=== PATIENT | male | born 1950 | race Caucasian/White ===

== ENCOUNTER 2017-01-13 18:47 | Inpatient (IN) | payer OTHER ==
[~2017-01-13] VITALS: Ht 170.2 cm; Wt 86.3 kg
[~2017-01-13 18:47] MED LIST: AMLO-512 PO; ASPI-449 PO; BENA40TA3 PO; GEMF600T3 PO; METF1000 PO; METO25XL PO; OMEP20CA10 PO; SERT50TA12 PO; TEMA30CA PO
[2017-01-13] MEDS ORDERED: LINA5TAB PO (18:56)
[2017-01-13] MEDS ORDERED: METO50 PO (18:56)
[2017-01-13] MEDS ORDERED: HYDR25TA PO (18:56)
[2017-01-13] MEDS ORDERED: LOSA50TA37 PO (18:56)
[2017-01-13 18:58] LABS: GLUCOSE,POINT OF CARE 222 MG/DL (70-110)
[2017-01-13 20:20] LABS: BASOPHILS % (AUTO) 0.7 % (0.0-2.0); EOSINOPHILS % (AUTO) 0.3 % (1.0-6.0); HEMATOCRIT 36.3 % (41-53); HEMOGLOBIN 12.4 g/dL (13.5-17.5); LYMPHOCYTES # (AUTO) 0.9 K/uL (1.0-4.8); LYMPHOCYTES % (AUTO) 13.4 % (22.0-44.0); MEAN CORPUSCULAR HEMOGLOBIN 29.1 pg (26.0-34.0); MEAN CORPUSCULAR HGB CONC 34.2 G/dL (31.0-37.0); MEAN CORPUSCULAR VOLUME 85 fL (80-100); MONOCYTES # (AUTO) 0.4 K/uL (0.1-1.0); MONOCYTES % (AUTO) 5.9 % (2.0-9.0); NEUTROPHILS # (AUTO) 5.2 K/uL (1.8-7.7); NEUTROPHILS % (AUTO) 79.7 % (40.0-70.0); PLATELET COUNT (AUTO) 201 K/uL (150-450); RED BLOOD CELL COUNT(AUTO) 4.27 MIL/uL (4.50-5.90); RED CELL DISTRIBUTION WIDTH 15.5 % (11.5-14.5)
[2017-01-13 20:28] LABS: CREATININE 1.28 mg/dL (0.60-1.30); POTASSIUM 3.6 mmol/L (3.5-5.1)
[2017-01-13 20:33] LABS: ALBUMIN 3.8 g/dL (3.4-5.0); BILIRUBIN,TOTAL 0.8 mg/dL (0.1-1.0); TOTAL PROTEIN, SERUM 7.3 g/dL (6.4-8.2)
[2017-01-13 20:36] LABS: APPEARANCE,URINE CLEAR (CLEAR); GLUCOSE, URINE (UA) NEGATIVE (NEGATIVE); KETONES,URINE NEGATIVE (NEGATIVE); LEUKOCYTE ESTERASE ,URINE NEGATIVE (NEGATIVE); NITRATE,URINE NEGATIVE (NEGATIVE); OCCULT BLOOD,URINE NEGATIVE (NEGATIVE); PROTEIN,URINE SEE CONFIRM (NEGATIVE)
[2017-01-13 20:38] LABS: BILIRUBIN,URINE PRELIM. POSITIVE (NEGATIVE)
[2017-01-13 20:52] LABS: SULFOSALICYLIC ACID,URINE 3+ (Negative)
[2017-01-13 20:53] LABS: BACTERIA,URINE Few /HPF (None Seen); RBC,URINE 0-2 /HPF (0-2); SQUAMOUS EPITHELIAL CELL,UR Few /LPF (None Seen)
[2017-01-13] MEDS ORDERED: FUROSEMIDE 40 MG/4 ML VIAL IVP ONE (21:15)
[2017-01-13] MEDS ORDERED: ACETAMINOPHEN 325 MG TABLET PO PRN (21:45)
[2017-01-13] MEDS ORDERED: 0.9% SODIUM CHLORIDE 10 ML SYRINGE IVP PRN (21:45)
[2017-01-13] MEDS ORDERED: ONDANSETRON HCL 4 MG/2 ML VIAL IVP PRN (21:45)
[2017-01-13 22:10] VITALS: BP 154/107
[2017-01-14] VITALS (7 sets, daily range): BP systolic 126–156; BP diastolic 78–106
[2017-01-14] MEDS ORDERED: PNEUMOCOCCAL VACCINE POLYVALENT 0.5 ML VIAL [PPSV23] IM ONE (00:30)
[2017-01-14] MEDS ORDERED: 0.9% SODIUM CHLORIDE 10 ML SYRINGE IVP PRN (04:00)
[2017-01-14] MEDS ORDERED: ONDANSETRON HCL 4 MG/2 ML VIAL IVP PRN (04:00)
[2017-01-14] MEDS ORDERED: DEXTROSE 50%-WATER 25 GM/50 ML SYRINGE IVP PRN (04:00)
[2017-01-14] MEDS: INSULIN ASPART 100 UNITS/ML SQ PRN ×4 (06:03→20:27)
[2017-01-14 07:50] LABS: GLUCOMETER DEV NAME(LOC) 5S 2N; GLUCOSE,POINT OF CARE 199 MG/DL (70-110)
[2017-01-14 07:56] LABS: BASOPHILS # (AUTO) 0.03 K/uL (0.00-0.20); BASOPHILS % (AUTO) 0.5 % (0.0-2.0); EOSINOPHILS # (AUTO) 0.02 K/uL (0.00-0.70); EOSINOPHILS % (AUTO) 0.38 % (1.0-6.0); HEMATOCRIT 36.5 % (41-53); HEMOGLOBIN 12.2 g/dL (13.5-17.5); LYMPHOCYTES # (AUTO) 1.6 K/uL (1.0-4.8); LYMPHOCYTES % (AUTO) 24.2 % (22.0-44.0); MEAN CORPUSCULAR HEMOGLOBIN 28.5 pg (26.0-34.0); MEAN CORPUSCULAR HGB CONC 33.5 G/dL (31.0-37.0); MEAN CORPUSCULAR VOLUME 85 fL (80-100); MONOCYTES # (AUTO) 0.4 K/uL (0.1-1.0); MONOCYTES % (AUTO) 6.3 % (2.0-9.0); NEUTROPHILS # (AUTO) 4.5 K/uL (1.8-7.7); NEUTROPHILS % (AUTO) 68.5 % (40.0-70.0); PLATELET COUNT (AUTO) 183 K/uL (150-450); RED BLOOD CELL COUNT(AUTO) 4.28 MIL/uL (4.50-5.90); RED CELL DISTRIBUTION WIDTH 15.3 % (11.5-14.5)
[2017-01-14 08:10] LABS: INR 1.1 (0.9-1.1)
[2017-01-14 08:20] LABS: ALANINE AMINOTRANSFERASE 155 U/L (12-78); ALBUMIN 3.8 g/dL (3.4-5.0); ALKALINE PHOSPHATASE 90 U/L (46-116); ANION GAP 11 mmol/L (8-16); ASPARTATE AMINOTRANSFERASE 108 U/L (15-37); BILIRUBIN,TOTAL 0.9 mg/dL (0.1-1.0); CALCIUM, TOTAL 8.9 mg/dL (8.8-10.5); CARBON DIOXIDE 27 mmol/L (22-29); CHLORIDE 99 mmol/L (98-107); CREATININE 1.16 mg/dL (0.60-1.30); GLOMERULAR FILTR. RATE CALC > 60 mL/min (>60); GLUCOSE,RANDOM 154 mg/dL (70-110); POTASSIUM 3.2 mmol/L (3.5-5.1); SODIUM SERUM 137 mmol/L (136-145); TOTAL PROTEIN, SERUM 6.9 g/dL (6.4-8.2); UREA NITROGEN, BLOOD 20 mg/dL (7-18)
[2017-01-14] MEDS: FUROSEMIDE 40 MG/4 ML VIAL IVP SCH (08:22)
[2017-01-14] MEDS: PANTOPRAZOLE SODIUM 40 MG/VIAL IVP SCH ×2 (08:23→19:50)
[2017-01-14] MEDS: AmLODIPine BESYLATE 10 MG TABLET PO SCH (08:23)
[2017-01-14] MEDS: LOSARTAN POTASSIUM 50 MG TABLET PO SCH (08:25)
[2017-01-14] MEDS: GEMFIBROZIL 600 MG TABLET PO SCH ×2 (08:25→19:49)
[2017-01-14] MEDS: SERTRALINE HCL 50 MG TABLET PO SCH (08:26)
[2017-01-14] MEDS ORDERED: POTASSIUM CHLORIDE 20 MEQ ER TABLET PO ONE (10:00)
[2017-01-14] MEDS ORDERED: MAGNESIUM SULFATE 2 GM in DEXTROSE 5%-WATER 50 ML IV ONE (10:00)
[2017-01-14 13:32] LABS: HEMATOCRIT 36.7 % (41-53); HEMOGLOBIN 12.5 g/dL (13.5-17.5)
[2017-01-14 20:02] LABS: HEMATOCRIT 37.6 % (41-53); HEMOGLOBIN 12.5 g/dL (13.5-17.5)
[2017-01-15 02:01] LABS: HEMATOCRIT 37.4 % (41-53); HEMOGLOBIN 12.4 g/dL (13.5-17.5)
[2017-01-15 04:55] VITALS: BP 145/91
[2017-01-15] MEDS: INSULIN ASPART 100 UNITS/ML SQ PRN ×3 (05:48→17:50)
[2017-01-15 06:39] LABS: HEMOGLOBIN 12.6 g/dL (13.5-17.5)
[2017-01-15 07:18] VITALS: BP 139/97
[2017-01-15 07:57] LABS: GLUCOMETER DEV NAME(LOC) 5S 2N; GLUCOSE,POINT OF CARE 173 MG/DL (70-110)
[2017-01-15 07:57] LABS: GLUCOMETER DEV NAME(LOC) 5S 2N; GLUCOSE,POINT OF CARE 178 MG/DL (70-110)
[2017-01-15 08:06] LABS: GLUCOMETER DEV NAME(LOC) 5S 2N; GLUCOSE,POINT OF CARE 219 MG/DL (70-110)
[2017-01-15 08:07] LABS: GLUCOMETER DEV NAME(LOC) 5S 2N; GLUCOSE,POINT OF CARE 187 MG/DL (70-110)
[2017-01-15] MEDS: FUROSEMIDE 40 MG/4 ML VIAL IVP SCH (09:02)
[2017-01-15] MEDS: GEMFIBROZIL 600 MG TABLET PO SCH (09:03)
[2017-01-15] MEDS: PANTOPRAZOLE SODIUM 40 MG/VIAL IVP SCH (09:03)
[2017-01-15] MEDS: AmLODIPine BESYLATE 10 MG TABLET PO SCH (09:03)
[2017-01-15] MEDS: SERTRALINE HCL 50 MG TABLET PO SCH (09:04)
[2017-01-15] MEDS: LOSARTAN POTASSIUM 50 MG TABLET PO SCH (09:49)
[2017-01-15 11:20] VITALS: BP 108/69
[2017-01-15 14:57] LABS: HEMATOCRIT 39.4 % (41-53); HEMOGLOBIN 13.1 g/dL (13.5-17.5)
[2017-01-15 15:26] VITALS: BP 138/89
[2017-01-17 19:57] LABS: GLUCOMETER DEV NAME(LOC) 5S 1L; GLUCOSE,POINT OF CARE 195 MG/DL (70-110)
[2017-01-17 19:57] LABS: GLUCOMETER DEV NAME(LOC) 5S 2N; GLUCOSE,POINT OF CARE 241 MG/DL (70-110)
== END 2017-01-15 18:50 | disposition home or self-care (01) | DRG 194 ==
LOC: EMS 18:48 → 5S 21:33
PROVIDERS: ADMIT Internal Medicine; ATTEND Internal Medicine
DX: I11.0 Hypertensive heart disease with heart failure (principal); K74.60 Unspecified cirrhosis of liver; K92.2 Gastrointestinal hemorrhage, unspecified; K72.90 Hepatic failure, unspecified without coma; I20.0 Unstable angina; E11.9 Type 2 diabetes mellitus without complications; F32.9 Major depressive disorder, single episode, unspecified; E78.00 Pure hypercholesterolemia, unspecified; Z79.82 Long term (current) use of aspirin; Z79.899 Other long term (current) drug therapy; Z83.3 Family history of diabetes mellitus; Z82.49 Family history of ischemic heart disease and other diseases of the circulatory system; Z79.84 Long term (current) use of oral hypoglycemic drugs; I50.21 Acute systolic (congestive) heart failure
CPT/HCPCS: 71020; 82270; 82271; 82962; 83735; 84132; 85014; 85018; 86850; 86900; 86901; 90471; 93005; 93306; 96374; 99285; C9113; J1940; J3475; J7060

== ENCOUNTER 2017-03-15 05:47 | Inpatient (IN) | payer OTHER ==
[~2017-03-15] VITALS: Ht 170.2 cm; Wt 86.8 kg
[~2017-03-15 05:47] MED LIST changes: +HYDR25TA PO; +LINA5TAB PO; +LOSA50TA37 PO; -METO25XL PO; +METO50 PO
[2017-03-15 05:58] LABS: GLUCOSE,POINT OF CARE 236 MG/DL (70-110)
[2017-03-15 06:22] LABS: BASOPHILS # (AUTO) 0.02 K/uL (0.00-0.20); BASOPHILS % (AUTO) 0.4 % (0.0-2.0); EOSINOPHILS # (AUTO) 0.05 K/uL (0.00-0.70); EOSINOPHILS % (AUTO) 0.71 % (1.0-6.0); HEMATOCRIT 42.1 % (41-53); HEMOGLOBIN 13.9 g/dL (13.5-17.5); LYMPHOCYTES # (AUTO) 1.1 K/uL (1.0-4.8); LYMPHOCYTES % (AUTO) 15.9 % (22.0-44.0); MEAN CORPUSCULAR HEMOGLOBIN 27.6 pg (26.0-34.0); MEAN CORPUSCULAR VOLUME 84 fL (80-100); MONOCYTES # (AUTO) 0.3 K/uL (0.1-1.0); MONOCYTES % (AUTO) 4.5 % (2.0-9.0); NEUTROPHILS # (AUTO) 5.2 K/uL (1.8-7.7); NEUTROPHILS % (AUTO) 78.5 % (40.0-70.0); PLATELET COUNT (AUTO) 205 K/uL (150-450); RED BLOOD CELL COUNT(AUTO) 5.03 MIL/uL (4.50-5.90); RED CELL DISTRIBUTION WIDTH 15.1 % (11.5-14.5)
[2017-03-15 06:49] LABS: CALCIUM, TOTAL 9.3 mg/dL (8.8-10.5); CREATININE 1.5 mg/dL (0.60-1.30); POTASSIUM 4.6 mmol/L (3.5-5.1)
[2017-03-15 06:54] LABS: BILIRUBIN,TOTAL 0.7 mg/dL (0.1-1.0); TOTAL PROTEIN, SERUM 7.9 g/dL (6.4-8.2)
[2017-03-15] MEDS ORDERED: FUROSEMIDE 40 MG/4 ML VIAL IVP ONE (09:15)
[2017-03-15] MEDS ORDERED: ALBUTEROL SULFATE 2.5 MG/0.5 ML NEB SOLUTION NEB PRN (09:30)
[2017-03-15] MEDS ORDERED: 0.9% SODIUM CHLORIDE 10 ML SYRINGE IVP PRN (09:30)
[2017-03-15] MEDS ORDERED: ONDANSETRON HCL 4 MG/2 ML VIAL IVP PRN (09:30)
[2017-03-15] MEDS ORDERED: ACETAMINOPHEN 325 MG TABLET PO PRN ×2 (09:30)
[2017-03-15] MEDS ORDERED: MAGNESIUM HYDROXIDE SUSPENSION 30 ML UDCUP PO PRN (09:30)
[2017-03-15] MEDS: ASPIRIN 81 MG CHEWABLE TABLET PO SCH (09:39)
[2017-03-15] MEDS ORDERED: DEXTROSE 50%-WATER 25 GM/50 ML SYRINGE IVP PRN (09:45)
[2017-03-15 14:23] VITALS: BP 126/90
[2017-03-15 16:02] LABS: GLUCOSE,POINT OF CARE 249 MG/DL (70-110)
[2017-03-15] MEDS: INSULIN ASPART 100 UNITS/ML SQ PRN (16:15)
[2017-03-15 16:16] VITALS: BP 122/80
[2017-03-15] MEDS: HEPARIN SODIUM,PORCINE 5,000 UNITS/ML VIAL SQ SCH ×2 (16:16→23:35)
[2017-03-15] MEDS: BUMETANIDE 0.25 MG/ML 4 ML VIAL IVP SCH ×2 (16:16→23:35)
[2017-03-15 18:18] LABS: GLUCOSE,POINT OF CARE 186 MG/DL (70-110)
[2017-03-15 20:01] VITALS: BP 121/78
[2017-03-15 20:27] VITALS: BP 120/64
[2017-03-15] MEDS ORDERED: ATORVASTATIN CALCIUM 20 MG TABLET PO SCH (21:00)
[2017-03-15] MEDS ORDERED: METOPROLOL TARTRATE 25 MG TABLET PO SCH (21:00)
[2017-03-15] MEDS: DOCUSATE SODIUM 100 MG CAPSULE PO SCH (21:26)
[2017-03-16 00:29] VITALS: BP 133/101
[2017-03-16 04:39] VITALS: BP 122/80
[2017-03-16 05:58] LABS: ANION GAP 11 mmol/L (8-16); CALCIUM, TOTAL 9.7 mg/dL (8.8-10.5); CARBON DIOXIDE 27 mmol/L (22-29); CHLORIDE 98 mmol/L (98-107); CREATININE 1.14 mg/dL (0.60-1.30); GLOMERULAR FILTR. RATE CALC > 60 mL/min (>60); GLUCOSE,RANDOM 204 mg/dL (70-110); POTASSIUM 3.2 mmol/L (3.5-5.1); SODIUM SERUM 136 mmol/L (136-145); UREA NITROGEN, BLOOD 27 mg/dL (7-18)
[2017-03-16] MEDS: INSULIN ASPART 100 UNITS/ML SQ PRN ×2 (06:17→12:11)
[2017-03-16 07:04] VITALS: BP 128/85
[2017-03-16] MEDS: BUMETANIDE 0.25 MG/ML 4 ML VIAL IVP SCH (08:00)
[2017-03-16] MEDS ORDERED: FUROSEMIDE 20 MG/2 ML VIAL IVP SCH (09:00)
[2017-03-16] MEDS ORDERED: PANTOPRAZOLE SODIUM 40 MG DR TABLET PO SCH (09:00)
[2017-03-16] MEDS ORDERED: POTASSIUM CHLORIDE 20 MEQ ER TABLET PO ONE (09:00)
[2017-03-16] MEDS ORDERED: LISINOPRIL 5 MG TABLET PO SCH (09:00)
[2017-03-16] MEDS ORDERED: POTASSIUM CHL 10 MEQ/WATER 50 ML IV PRN (09:15)
[2017-03-16] MEDS ORDERED: POTASSIUM CHLORIDE 20 MEQ ER TABLET PO PRN (09:15)
[2017-03-16] MEDS ORDERED: BUMETANIDE 0.25 MG/ML 4 ML VIAL IVP ONE (09:15)
[2017-03-16] MEDS: HEPARIN SODIUM,PORCINE 5,000 UNITS/ML VIAL SQ SCH (09:31)
[2017-03-16] MEDS: ASPIRIN 81 MG CHEWABLE TABLET PO SCH (09:32)
[2017-03-16] MEDS: DOCUSATE SODIUM 100 MG CAPSULE PO SCH (09:32)
[2017-03-16 11:23] VITALS: BP 126/90
[2017-03-16] MEDS ORDERED: LOSA50TA37 PO (14:16)
[2017-03-16] MEDS ORDERED: BUME1TAB17 PO (14:16)
[2017-03-16] MEDS ORDERED: CARV6 PO (14:16)
[2017-03-16] MEDS ORDERED: SPIR25 PO (14:17)
[2017-03-16 15:00] VITALS: BP 122/88
[2017-03-16 17:53] LABS: GLUCOMETER DEV NAME(LOC) 5N 2R; GLUCOSE,POINT OF CARE 317 MG/DL (70-110)
[2017-03-16 17:53] LABS: GLUCOMETER DEV NAME(LOC) 5N 2R; GLUCOSE,POINT OF CARE 181 MG/DL (70-110)
== END 2017-03-16 15:10 | disposition home or self-care (01) | DRG 194 ==
LOC: EMS 05:47 → ICUN 11:24 → 5N 22:47
PROVIDERS: ADMIT Internal Medicine; ATTEND Internal Medicine
DX: I11.0 Hypertensive heart disease with heart failure (principal); N17.9 Acute kidney failure, unspecified; I27.29 Other secondary pulmonary hypertension; E11.65 Type 2 diabetes mellitus with hyperglycemia; K74.60 Unspecified cirrhosis of liver; I50.23 Acute on chronic systolic (congestive) heart failure; E66.9 Obesity, unspecified; E78.00 Pure hypercholesterolemia, unspecified; E78.5 Hyperlipidemia, unspecified; I25.5 Ischemic cardiomyopathy; Z87.891 Personal history of nicotine dependence; Z91.14 Patient's other noncompliance with medication regimen; Z68.30 Body mass index [BMI] 30.0-30.9, adult
CPT/HCPCS: 82962; 83036; 84132; 93005; 93306; 96374; 99285; J1644; J1815; J1940; J3490

== ENCOUNTER 2017-04-18 21:17 | Emergency (ER) | payer OTHER ==
[~2017-04-18] VITALS: Ht 170.2 cm; Wt 79.5 kg
[~2017-04-18 21:17] MED LIST changes: -AMLO-512 PO; -BENA40TA3 PO; +BUME1TAB17 PO; +CARV6 PO; -GEMF600T3 PO; -HYDR25TA PO; -LINA5TAB PO; -METO50 PO; +SPIR25 PO; -TEMA30CA PO
[2017-04-18 21:48] LABS: GLUCOSE,POINT OF CARE 178 MG/DL (70-110)
[2017-04-18] MEDS ORDERED: PIOG30TA10 PO (21:57)
[2017-04-18] MEDS ORDERED: AMLO-511 PO (21:57)
[2017-04-18] MEDS ORDERED: HYDR25TA PO (21:57)
[2017-04-18] MEDS ORDERED: DOXA2TAB PO (21:57)
[2017-04-18] MEDS ORDERED: LINA5TAB PO (21:57)
[2017-04-18] MEDS ORDERED: GABA-531 PO (21:57)
[2017-04-18] MEDS ORDERED: 0.9% SODIUM CHLORIDE 5 ML NEB SOLUTION NEB ONE (22:27)
[2017-04-18] MEDS ORDERED: ALBUTEROL SULFATE 2.5 MG/0.5 ML NEB SOLUTION NEB ONE (22:30)
[2017-04-19] MEDS ORDERED: NITROGLYCERIN 2% (1 GM=INCH) PACKET TP ONE (00:15)
[2017-04-19] MEDS ORDERED: FUROSEMIDE 20 MG/2 ML VIAL IVP ONE (00:15)
[2017-04-19 00:49] LABS: BASOPHILS % (AUTO) 0.5 % (0.0-2.0); EOSINOPHILS % (AUTO) 0.5 % (1.0-6.0); HEMATOCRIT 38.8 % (41-53); HEMOGLOBIN 13.3 g/dL (13.5-17.5); LYMPHOCYTES # (AUTO) 1.3 K/uL (1.0-4.8); LYMPHOCYTES % (AUTO) 26.7 % (22.0-44.0); MEAN CORPUSCULAR HEMOGLOBIN 27.4 pg (26.0-34.0); MEAN CORPUSCULAR HGB CONC 34.2 G/dL (31.0-37.0); MEAN CORPUSCULAR VOLUME 80 fL (80-100); MONOCYTES # (AUTO) 0.4 K/uL (0.1-1.0); MONOCYTES % (AUTO) 7.6 % (2.0-9.0); NEUTROPHILS # (AUTO) 3.2 K/uL (1.8-7.7); NEUTROPHILS % (AUTO) 64.7 % (40.0-70.0); PLATELET COUNT (AUTO) 145 K/uL (150-450); RED BLOOD CELL COUNT(AUTO) 4.86 MIL/uL (4.50-5.90); RED CELL DISTRIBUTION WIDTH 15.6 % (11.5-14.5)
[2017-04-19 00:53] LABS: ANION GAP 10 mmol/L (8-16); CALCIUM, TOTAL 9.1 mg/dL (8.8-10.5); CARBON DIOXIDE 25 mmol/L (22-29); CHLORIDE 101 mmol/L (98-107); CREATININE 1.15 mg/dL (0.60-1.30); GLOMERULAR FILTR. RATE CALC > 60 mL/min (>60); GLUCOSE,RANDOM 146 mg/dL (70-110); SODIUM SERUM 136 mmol/L (136-145); UREA NITROGEN, BLOOD 20 mg/dL (7-18)
[2017-04-19 00:59] LABS: ALANINE AMINOTRANSFERASE 22 U/L (12-78); ALBUMIN 3.6 g/dL (3.4-5.0); ALKALINE PHOSPHATASE 58 U/L (46-116); ASPARTATE AMINOTRANSFERASE 20 U/L (15-37); BILIRUBIN,TOTAL 0.8 mg/dL (0.1-1.0); TOTAL PROTEIN, SERUM 7.5 g/dL (6.4-8.2)
[2017-04-19 01:10] LABS: B-TYPE NATRIURETIC PEPTIDE 2490 pg/mL (0-100)
[2017-04-19 01:36] LABS: APPEARANCE,URINE CLEAR (CLEAR); GLUCOSE, URINE (UA) NEGATIVE (NEGATIVE); KETONES,URINE TRACE mg/dL (NEGATIVE); LEUKOCYTE ESTERASE ,URINE NEGATIVE (NEGATIVE); NITRATE,URINE NEGATIVE (NEGATIVE); OCCULT BLOOD,URINE NEGATIVE (NEGATIVE); PH,URINE 5.5 (5.0-8.0); PROTEIN,URINE SEE CONFIRM (NEGATIVE)
[2017-04-19 01:39] LABS: BILIRUBIN,URINE PRELIM. POSITIVE (NEGATIVE)
[2017-04-19 02:15] LABS: SULFOSALICYLIC ACID,URINE 1+ (Negative)
[2017-04-19 02:16] LABS: BACTERIA,URINE None Seen /HPF (None Seen); RBC,URINE 0-2 /HPF (0-2); SQUAMOUS EPITHELIAL CELL,UR Rare /LPF (None Seen); WBC,URINE 0-2 /HPF (0-5)
[2017-04-19 02:41] VITALS: BP 116/77
== END 2017-04-19 02:58 | disposition home or self-care (01) ==
LOC: EMS 21:18
DX: I11.0 Hypertensive heart disease with heart failure (principal); I50.9 Heart failure, unspecified; J18.9 Pneumonia, unspecified organism; E11.9 Type 2 diabetes mellitus without complications; E78.00 Pure hypercholesterolemia, unspecified; Z98.890 Other specified postprocedural states; Z79.4 Long term (current) use of insulin; Z79.82 Long term (current) use of aspirin; Z79.899 Other long term (current) drug therapy
CPT/HCPCS: 36415; 71045; 80053; 81001; 82962; 83880; 84484; 85025; 93005; 94640; 96374; 99285; J1940; J7613

== ENCOUNTER 2018-06-11 10:54 | Emergency (ER) | payer OTHER ==
[~2018-06-11] VITALS: Ht 167.6 cm; Wt 100.0 kg
[~2018-06-11 10:54] MED LIST changes: +GABA-531 PO; +ISOS30TA6 PO; +LINA5TAB PO; -LOSA50TA37 PO; +SACU1TAB7 PO
[2018-06-11 10:56] VITALS: BP 142/87
[2018-06-11] MEDS ORDERED: AMLO-511 PO (11:05)
[2018-06-11] MEDS ORDERED: ATOR40TA28 PO (11:05)
[2018-06-11] MEDS ORDERED: EMPA10TA PO (11:05)
[2018-06-11 11:09] LABS: GLUCOSE,POINT OF CARE 142 MG/DL (70-110)
== END 2018-06-11 11:55 | disposition home or self-care (01) ==
LOC: EMS 10:55
DX: G51.0 Bell's palsy (principal); I11.0 Hypertensive heart disease with heart failure; I50.9 Heart failure, unspecified; E78.00 Pure hypercholesterolemia, unspecified; E11.9 Type 2 diabetes mellitus without complications; Z79.84 Long term (current) use of oral hypoglycemic drugs

== ENCOUNTER 2019-01-15 07:05 | Emergency (ER) | payer MEDICARE, OTHER ==
[~2019-01-15] VITALS: Ht 170.2 cm; Wt 80.9 kg
[~2019-01-15 07:05] MED LIST changes: +AMLO5TAB9 PO; -ASPI-449 PO; +ATOR40TA28 PO; -BUME1TAB17 PO; +EMPA10TA PO; -ISOS30TA6 PO; -LINA5TAB PO; +OMEP-50 PO; -OMEP20CA10 PO; -SACU1TAB7 PO
[2019-01-15] MEDS ORDERED: INSU100I26 SQ (07:18)
[2019-01-15] MEDS ORDERED: ASPI81 PO (07:18)
[2019-01-15] MEDS ORDERED: SACU1TAB PO (07:18)
[2019-01-15] MEDS ORDERED: BUME1TAB34 PO (07:18)
[2019-01-15] MEDS ORDERED: HYDR-4061 PO (07:21)
[2019-01-15] MEDS ORDERED: LINA5TAB PO (07:21)
[2019-01-15 07:26] LABS: GLUCOSE,POINT OF CARE 260 MG/DL (70-110)
[2019-01-15] MEDS ORDERED: 0.9% SODIUM CHLORIDE 10 ML SYRINGE IVP PRN (07:45)
[2019-01-15] MEDS ORDERED: FAMOTIDINE 10 MG/ML 2 ML VIAL IVP ONE (08:00)
[2019-01-15] MEDS ORDERED: ONDANSETRON HCL 4 MG/2 ML VIAL IVP ONE (08:00)
[2019-01-15] MEDS ORDERED: SODIUM CHLORIDE 0.9% 250 ML IV ONE (08:00)
[2019-01-15] MEDS ORDERED: PB/HYOSCY/ATR/SCOP/LIDO/MAALOX 55 ML BOTTLE PO ONE (08:00)
[2019-01-15 08:39] LABS: BASOPHILS % (AUTO) 0.5 % (0.0-2.0); EOSINOPHILS % (AUTO) 0.1 % (1.0-6.0); HEMATOCRIT 37.2 % (41-53); HEMOGLOBIN 12.2 g/dL (13.5-17.5); LYMPHOCYTES # (AUTO) 0.6 K/uL (1.0-4.8); LYMPHOCYTES % (AUTO) 8.5 % (22.0-44.0); MEAN CORPUSCULAR HEMOGLOBIN 28.8 pg (26.0-34.0); MEAN CORPUSCULAR HGB CONC 32.6 G/dL (31.0-37.0); MEAN CORPUSCULAR VOLUME 88 fL (80-100); MONOCYTES # (AUTO) 0.4 K/uL (0.1-1.0); NEUTROPHILS # (AUTO) 6.1 K/uL (1.8-7.7); NEUTROPHILS % (AUTO) 84.9 % (40.0-70.0); PLATELET COUNT (AUTO) 195 K/uL (150-450); RED BLOOD CELL COUNT(AUTO) 4.21 MIL/uL (4.50-5.90); RED CELL DISTRIBUTION WIDTH 16.8 % (11.5-14.5)
[2019-01-15 08:48] LABS: ANION GAP 12 mmol/L (8-16); CALCIUM, TOTAL 9.3 mg/dL (8.8-10.5); CARBON DIOXIDE 21 mmol/L (22-29); CHLORIDE 101 mmol/L (98-107); CREATININE 1.35 mg/dL (0.60-1.30); GLOMERULAR FILTR. RATE CALC 52 mL/min (>60); GLUCOSE,RANDOM 251 mg/dL (70-110); SODIUM SERUM 134 mmol/L (136-145); UREA NITROGEN, BLOOD 29 mg/dL (7-18)
[2019-01-15] MEDS ORDERED: IOVERSOL 350 MG/ML 100 ML VIAL ONE (08:49)
[2019-01-15] MEDS ORDERED: SODIUM CHLORIDE 0.9% 100 ML ONE (08:50)
[2019-01-15 08:53] LABS: ALANINE AMINOTRANSFERASE 376 U/L (12-78); ALBUMIN 4.1 g/dL (3.4-5.0); ALKALINE PHOSPHATASE 135 U/L (46-116); ASPARTATE AMINOTRANSFERASE 496 U/L (15-37); TOTAL PROTEIN, SERUM 7.6 g/dL (6.4-8.2)
[2019-01-15 09:00] LABS: LACTIC ACID 3.1 mmol/L (0.4-2.0)
[2019-01-15 09:03] LABS: ACETONE,BLOOD NEGATIVE (NEGATIVE)
[2019-01-15] MEDS ORDERED: MetroNIDAZOLE 500 MG/NACL 100 ML IV ONE (10:15)
[2019-01-15] MEDS ORDERED: CefTRIAXone 1 GM/DEXTROSE 50 ML IV ONE (10:15)
[2019-01-15 10:39] LABS: APPEARANCE,URINE CLEAR (CLEAR); GLUCOSE, URINE (UA) >=1000 mg/dL (NEGATIVE); KETONES,URINE TRACE mg/dL (NEGATIVE); LEUKOCYTE ESTERASE ,URINE NEGATIVE (NEGATIVE); NITRATE,URINE NEGATIVE (NEGATIVE); OCCULT BLOOD,URINE TRACE (NEGATIVE); PROTEIN,URINE SEE CONFIRM (NEGATIVE)
[2019-01-15 10:45] LABS: BILIRUBIN,URINE PRELIM. POSITIVE (NEGATIVE)
[2019-01-15 10:46] LABS: BACTERIA,URINE None Seen /HPF (None Seen); RBC,URINE 0-2 /HPF (0-2); SULFOSALICYLIC ACID,URINE 3+ (Negative); WBC,URINE None Seen /HPF (0-5)
[2019-01-15 13:20] VITALS: BP 149/106
== END 2019-01-15 13:40 | disposition short-term general hospital (02) ==
LOC: EMS 07:05
DX: K80.42 Calculus of bile duct with acute cholecystitis without obstruction (principal); J18.9 Pneumonia, unspecified organism; I11.0 Hypertensive heart disease with heart failure; I50.9 Heart failure, unspecified; R79.89 Other specified abnormal findings of blood chemistry; E11.9 Type 2 diabetes mellitus without complications; E78.00 Pure hypercholesterolemia, unspecified; Z98.890 Other specified postprocedural states; Z79.82 Long term (current) use of aspirin
CPT/HCPCS: 36415; 71045; 74177; 76705; 80053; 81001; 82009; 82962; 83605; 83690; 83880; 84484; 85025; 87040; 93005; 96365; 96368; 96375; 99291; J0696; J2405; J3490 ×2; J7050 ×2; Q9967

== ENCOUNTER 2019-01-25 13:39 | Inpatient (IN) | payer MEDICARE, OTHER ==
[~2019-01-25] VITALS: Ht 167.6 cm; Wt 90.9 kg
[~2019-01-25 13:39] MED LIST changes: +ASPI81 PO; -ATOR40TA28 PO; +BUME1TAB34 PO; +HYDR-4061 PO; +INSU100I26 SQ; +LINA5TAB PO; -OMEP-50 PO; +OMEP20CA12 PO; +SACU1TAB PO
[2019-01-25 14:17] LABS: GLUCOSE,POINT OF CARE 257 MG/DL (70-110)
[2019-01-25 14:57] LABS: BASOPHILS % (AUTO) 0.9 % (0.0-2.0); EOSINOPHILS % (AUTO) 0.4 % (1.0-6.0); HEMATOCRIT 38.5 % (41-53); HEMOGLOBIN 12.4 g/dL (13.5-17.5); LYMPHOCYTES # (AUTO) 0.7 K/uL (1.0-4.8); LYMPHOCYTES % (AUTO) 11.4 % (22.0-44.0); MEAN CORPUSCULAR HEMOGLOBIN 28.6 pg (26.0-34.0); MEAN CORPUSCULAR HGB CONC 32.1 G/dL (31.0-37.0); MEAN CORPUSCULAR VOLUME 89 fL (80-100); MONOCYTES # (AUTO) 0.6 K/uL (0.1-1.0); MONOCYTES % (AUTO) 9.5 % (2.0-9.0); NEUTROPHILS # (AUTO) 4.9 K/uL (1.8-7.7); NEUTROPHILS % (AUTO) 77.8 % (40.0-70.0); PLATELET COUNT (AUTO) 199 K/uL (150-450); RED BLOOD CELL COUNT(AUTO) 4.32 MIL/uL (4.50-5.90); RED CELL DISTRIBUTION WIDTH 16.5 % (11.5-14.5)
[2019-01-25 15:23] LABS: ANION GAP 12 mmol/L (8-16); CALCIUM, TOTAL 9.4 mg/dL (8.8-10.5); CARBON DIOXIDE 24 mmol/L (22-29); CHLORIDE 98 mmol/L (98-107); CREATININE 1.15 mg/dL (0.60-1.30); GLOMERULAR FILTR. RATE CALC > 60 mL/min (>60); GLUCOSE,RANDOM 249 mg/dL (70-110); POTASSIUM 4.5 mmol/L (3.5-5.1); SODIUM SERUM 134 mmol/L (136-145); UREA NITROGEN, BLOOD 25 mg/dL (7-18)
[2019-01-25 15:28] LABS: ALANINE AMINOTRANSFERASE 377 U/L (12-78); ALBUMIN 3.8 g/dL (3.4-5.0); ALKALINE PHOSPHATASE 274 U/L (46-116); ASPARTATE AMINOTRANSFERASE 251 U/L (15-37); BILIRUBIN,TOTAL 2.3 mg/dL (0.1-1.0); LIPASE 227 U/L (73-393); TOTAL PROTEIN, SERUM 7.4 g/dL (6.4-8.2)
[2019-01-25 17:52] LABS: INR 1.2 (0.9-1.1); PROTHROMBIN TIME 12.2 SEC (9.4-11.6)
[2019-01-25] MEDS ORDERED: MORPHINE SULFATE 4 MG/ML SYRINGE IVP ONE (18:00)
[2019-01-25] MEDS ORDERED: ONDANSETRON HCL 4 MG/2 ML VIAL IVP ONE (18:00)
[2019-01-25] MEDS ORDERED: SODIUM CHLORIDE 0.9% 1,000 ML IV ONE (18:00)
[2019-01-25] MEDS ORDERED: IOVERSOL 350 MG/ML 150 ML VIAL ONE (18:30)
[2019-01-25] MEDS ORDERED: SODIUM CHLORIDE 0.9% 100 ML ONE (18:30)
[2019-01-25 21:00] LABS: APPEARANCE,URINE CLEAR (CLEAR); GLUCOSE, URINE (UA) NEGATIVE (NEGATIVE); KETONES,URINE NEGATIVE (NEGATIVE); LEUKOCYTE ESTERASE ,URINE NEGATIVE (NEGATIVE); NITRATE,URINE NEGATIVE (NEGATIVE); OCCULT BLOOD,URINE NEGATIVE (NEGATIVE); PROTEIN,URINE SEE CONFIRM (NEGATIVE); UROBILINOGEN,URINE 0.2 mg/dL (<=1.0)
[2019-01-25 21:05] LABS: BILIRUBIN,URINE PRELIM. POSITIVE (NEGATIVE)
[2019-01-25 21:07] LABS: SULFOSALICYLIC ACID,URINE 4+ (Negative)
[2019-01-25 21:08] LABS: BACTERIA,URINE None Seen /HPF (None Seen); RBC,URINE 0-2 /HPF (0-2); SQUAMOUS EPITHELIAL CELL,UR Rare /LPF (None Seen); WBC,URINE 0-2 /HPF (0-5)
[2019-01-25] MEDS ORDERED: 0.9% SODIUM CHLORIDE 10 ML SYRINGE IVP PRN (21:30)
[2019-01-25] MEDS ORDERED: ACETAMINOPHEN 325 MG TABLET PO PRN (21:30)
[2019-01-25] MEDS ORDERED: ONDANSETRON HCL 4 MG/2 ML VIAL IVP PRN (21:30)
[2019-01-25 23:16] VITALS: BP 137/100
[2019-01-26 04:00] VITALS: BP 133/93
[2019-01-26 06:41] LABS: BASOPHILS % (AUTO) 0.6 % (0.0-2.0); EOSINOPHILS % (AUTO) 0.8 % (1.0-6.0); HEMATOCRIT 35.8 % (41-53); HEMOGLOBIN 11.7 g/dL (13.5-17.5); MEAN CORPUSCULAR HGB CONC 32.7 G/dL (31.0-37.0); MEAN CORPUSCULAR VOLUME 89 fL (80-100); MONOCYTES # (AUTO) 0.7 K/uL (0.1-1.0); MONOCYTES % (AUTO) 11.3 % (2.0-9.0); NEUTROPHILS # (AUTO) 4.3 K/uL (1.8-7.7); NEUTROPHILS % (AUTO) 71.3 % (40.0-70.0); PLATELET COUNT (AUTO) 188 K/uL (150-450); RED BLOOD CELL COUNT(AUTO) 4.04 MIL/uL (4.50-5.90); RED CELL DISTRIBUTION WIDTH 16.7 % (11.5-14.5)
[2019-01-26 06:50] LABS: ANION GAP 10 mmol/L (8-16); CALCIUM, TOTAL 8.6 mg/dL (8.8-10.5); CARBON DIOXIDE 25 mmol/L (22-29); CHLORIDE 100 mmol/L (98-107); CREATININE 1.07 mg/dL (0.60-1.30); GLOMERULAR FILTR. RATE CALC > 60 mL/min (>60); GLUCOSE,RANDOM 200 mg/dL (70-110); SODIUM SERUM 135 mmol/L (136-145); UREA NITROGEN, BLOOD 23 mg/dL (7-18)
[2019-01-26 06:54] LABS: ALANINE AMINOTRANSFERASE 472 U/L (12-78); ALBUMIN 3.5 g/dL (3.4-5.0); ALKALINE PHOSPHATASE 291 U/L (46-116); ASPARTATE AMINOTRANSFERASE 371 U/L (15-37); BILIRUBIN,TOTAL 2.6 mg/dL (0.1-1.0); TOTAL PROTEIN, SERUM 6.8 g/dL (6.4-8.2)
[2019-01-26 07:59] VITALS: BP 136/102
[2019-01-26 11:01] VITALS: BP 137/98
[2019-01-26 11:22] LABS: GLUCOMETER DEV NAME(LOC) 4E.2; GLUCOSE,POINT OF CARE 184 MG/DL (70-110)
[2019-01-26] MEDS: LinaGLIPtin 5 MG TABLET PO SCH (11:45)
[2019-01-26] MEDS ORDERED: DEXTROSE 50%-WATER 25 GM/50 ML SYRINGE IVP PRN (12:15)
[2019-01-26] MEDS: INSULIN LISPRO 100 UNITS/ML SQ PRN ×2 (12:27→17:26)
[2019-01-26] MEDS: SPIRONOLACTONE 25 MG TABLET PO SCH ×2 (12:28→22:01)
[2019-01-26] MEDS: SACUBITRIL/VALSARTAN 24-26 MG TABLET PO SCH (12:28)
[2019-01-26] MEDS: GABAPENTIN 300 MG CAPSULE PO SCH ×2 (15:58→22:01)
[2019-01-26 16:11] VITALS: BP 138/95
[2019-01-26] MEDS ORDERED: MetFORMIN HCL 500 MG TABLET PO SCH (17:30)
[2019-01-26 19:20] VITALS: BP 138/95
[2019-01-26] MEDS: CARVEDILOL 6.25 MG TABLET PO SCH (22:01)
[2019-01-26 23:29] VITALS: BP 106/73
[2019-01-27 05:28] VITALS: BP 130/94
[2019-01-27 06:35] LABS: BASOPHILS % (AUTO) 0.8 % (0.0-2.0); EOSINOPHILS % (AUTO) 2.1 % (1.0-6.0); HEMATOCRIT 35.4 % (41-53); HEMOGLOBIN 11.6 g/dL (13.5-17.5); LYMPHOCYTES # (AUTO) 0.9 K/uL (1.0-4.8); LYMPHOCYTES % (AUTO) 16.1 % (22.0-44.0); MEAN CORPUSCULAR HEMOGLOBIN 28.8 pg (26.0-34.0); MEAN CORPUSCULAR HGB CONC 32.7 G/dL (31.0-37.0); MEAN CORPUSCULAR VOLUME 88 fL (80-100); MONOCYTES # (AUTO) 0.6 K/uL (0.1-1.0); MONOCYTES % (AUTO) 10.2 % (2.0-9.0); NEUTROPHILS # (AUTO) 4.1 K/uL (1.8-7.7); NEUTROPHILS % (AUTO) 70.8 % (40.0-70.0); PLATELET COUNT (AUTO) 182 K/uL (150-450); RED BLOOD CELL COUNT(AUTO) 4.02 MIL/uL (4.50-5.90); RED CELL DISTRIBUTION WIDTH 16.8 % (11.5-14.5)
[2019-01-27 06:37] LABS: GLUCOMETER DEV NAME(LOC) 6N.2; GLUCOSE,POINT OF CARE 138 MG/DL (70-110)
[2019-01-27 06:37] LABS: GLUCOMETER DEV NAME(LOC) 6N.2; GLUCOSE,POINT OF CARE 215 MG/DL (70-110)
[2019-01-27 06:37] LABS: GLUCOMETER DEV NAME(LOC) 6N.2; GLUCOSE,POINT OF CARE 231 MG/DL (70-110)
[2019-01-27 06:38] LABS: GLUCOMETER DEV NAME(LOC) 6N.2; GLUCOSE,POINT OF CARE 115 MG/DL (70-110)
[2019-01-27 06:49] LABS: ALANINE AMINOTRANSFERASE 408 U/L (12-78); ALBUMIN 3.3 g/dL (3.4-5.0); ALKALINE PHOSPHATASE 341 U/L (46-116); ANION GAP 13 mmol/L (8-16); ASPARTATE AMINOTRANSFERASE 206 U/L (15-37); BILIRUBIN,TOTAL 1.6 mg/dL (0.1-1.0); CALCIUM, TOTAL 8.6 mg/dL (8.8-10.5); CARBON DIOXIDE 23 mmol/L (22-29); CHLORIDE 100 mmol/L (98-107); CREATININE 0.98 mg/dL (0.60-1.30); GLOMERULAR FILTR. RATE CALC > 60 mL/min (>60); GLUCOSE,RANDOM 113 mg/dL (70-110); POTASSIUM 3.9 mmol/L (3.5-5.1); SODIUM SERUM 136 mmol/L (136-145); TOTAL PROTEIN, SERUM 6.5 g/dL (6.4-8.2); UREA NITROGEN, BLOOD 26 mg/dL (7-18)
[2019-01-27 07:58] VITALS: BP 102/63
[2019-01-27] MEDS ORDERED: AmLODIPine BESYLATE 5 MG TABLET PO SCH (09:00)
[2019-01-27] MEDS ORDERED: BUMETANIDE 1 MG TABLET PO SCH (09:00)
[2019-01-27] MEDS ORDERED: ASPIRIN 81 MG CHEWABLE TABLET PO SCH (09:00)
[2019-01-27] MEDS ORDERED: OMEPRAZOLE 20 MG CAPSULE PO SCH (09:00)
[2019-01-27] MEDS: LinaGLIPtin 5 MG TABLET PO SCH (09:09)
[2019-01-27] MEDS: SPIRONOLACTONE 25 MG TABLET PO SCH (09:10)
[2019-01-27] MEDS: SACUBITRIL/VALSARTAN 24-26 MG TABLET PO SCH (09:10)
[2019-01-27] MEDS: CARVEDILOL 6.25 MG TABLET PO SCH (09:10)
[2019-01-27] MEDS: GABAPENTIN 300 MG CAPSULE PO SCH ×2 (09:10→18:09)
[2019-01-27 11:34] VITALS: BP 126/79
[2019-01-27] MEDS: INSULIN LISPRO 100 UNITS/ML SQ PRN ×2 (11:41→18:14)
[2019-01-27 12:06] LABS: GLUCOMETER DEV NAME(LOC) 6N.2; GLUCOSE,POINT OF CARE 201 MG/DL (70-110)
[2019-01-27 18:24] LABS: GLUCOMETER DEV NAME(LOC) 6N.2; GLUCOSE,POINT OF CARE 177 MG/DL (70-110)
== END 2019-01-27 08:46 | disposition home or self-care (01) | DRG 392 ==
LOC: EMS 13:41 → 4E 22:00
PROVIDERS: ADMIT Hospitalist; ATTEND Hospitalist
DX: R10.9 Unspecified abdominal pain (principal); E11.9 Type 2 diabetes mellitus without complications; I50.9 Heart failure, unspecified; K74.60 Unspecified cirrhosis of liver; I11.0 Hypertensive heart disease with heart failure; E78.00 Pure hypercholesterolemia, unspecified; Z90.49 Acquired absence of other specified parts of digestive tract
CPT/HCPCS: 74177; 76700; 82248; 96374; G0378; J2270; J2405; J7030; J7050

== ENCOUNTER 2019-02-05 09:49 | Emergency (ER) | payer MEDICARE, OTHER ==
[~2019-02-05] VITALS: Ht 172.7 cm; Wt 84.1 kg
[~2019-02-05 09:49] MED LIST changes: +OMEP-50 PO; -OMEP20CA12 PO; -SERT50TA12 PO
[2019-02-05 10:08] LABS: GLUCOSE,POINT OF CARE 198 MG/DL (70-110)
[2019-02-05] MEDS ORDERED: SODIUM CHLORIDE 0.9% 100 ML ONE ×2 (10:26→11:26)
[2019-02-05] MEDS ORDERED: IOVERSOL 350 MG/ML 100 ML VIAL ONE ×2 (10:26→11:26)
[2019-02-05] MEDS ORDERED: BARIUM SULFATE 0.1% SUSPENSION 450 ML BOTTLE PO ONE (10:30)
[2019-02-05] MEDS ORDERED: ONDANSETRON HCL 4 MG/2 ML VIAL IVP ONE (10:30)
[2019-02-05 11:05] LABS: BASOPHILS % (AUTO) 0.9 % (0.0-2.0); HEMOGLOBIN 11.4 g/dL (13.5-17.5); LYMPHOCYTES # (AUTO) 0.7 K/uL (1.0-4.8); LYMPHOCYTES % (AUTO) 17.8 % (22.0-44.0); MEAN CORPUSCULAR HEMOGLOBIN 28.1 pg (26.0-34.0); MEAN CORPUSCULAR HGB CONC 32.5 G/dL (31.0-37.0); MEAN CORPUSCULAR VOLUME 87 fL (80-100); MONOCYTES # (AUTO) 0.4 K/uL (0.1-1.0); MONOCYTES % (AUTO) 9.4 % (2.0-9.0); NEUTROPHILS # (AUTO) 2.9 K/uL (1.8-7.7); NEUTROPHILS % (AUTO) 70.9 % (40.0-70.0); PLATELET COUNT (AUTO) 200 K/uL (150-450); RED BLOOD CELL COUNT(AUTO) 4.05 MIL/uL (4.50-5.90); RED CELL DISTRIBUTION WIDTH 16.1 % (11.5-14.5)
[2019-02-05 11:15] LABS: INR 1.2 (0.9-1.1); PROTHROMBIN TIME 11.9 SEC (9.4-11.6)
[2019-02-05 11:16] LABS: CALCIUM, TOTAL 9.2 mg/dL (8.8-10.5); CREATININE 1.28 mg/dL (0.60-1.30); POTASSIUM 4.7 mmol/L (3.5-5.1)
[2019-02-05 11:22] LABS: ALBUMIN 3.6 g/dL (3.4-5.0); BILIRUBIN,TOTAL 1.2 mg/dL (0.1-1.0)
[2019-02-05 13:10] VITALS: BP 126/86
== END 2019-02-05 13:20 | disposition home or self-care (01) ==
LOC: EMS 09:52
DX: R10.84 Generalized abdominal pain (principal); R11.10 Vomiting, unspecified; I11.0 Hypertensive heart disease with heart failure; I50.9 Heart failure, unspecified; E11.9 Type 2 diabetes mellitus without complications; E78.00 Pure hypercholesterolemia, unspecified; Z90.89 Acquired absence of other organs; Z79.84 Long term (current) use of oral hypoglycemic drugs; Z79.82 Long term (current) use of aspirin
CPT/HCPCS: 36415; 71045; 74177; 80053; 82962; 83690; 84484; 85025; 85610; 93005; 96374; 99285; J2405; J7050; Q9967

== ENCOUNTER 2019-08-16 19:29 | Inpatient (IN) | payer MEDICARE, OTHER ==
[~2019-08-16] VITALS: Ht 167.6 cm; Wt 78.6 kg
[~2019-08-16 19:29] MED LIST changes: -AMLO5TAB9 PO; +ASPI-728 PO; -ASPI81 PO; +BENA5TAB26 PO; -BUME1TAB34 PO; -EMPA10TA PO; +FENO150C4 PO; +FERR-89 PO; +FURO40 PO; +GABA-1181 PO; -GABA-531 PO; -HYDR-4061 PO; +INSLAN SQ; -INSU100I26 SQ; +IPRA4AER IH; -LINA5TAB PO; -METF1000 PO; -OMEP-50 PO; +OMEP20CA12 PO; -SACU1TAB PO; +SERT50TA12 PO; +TEMA15CA PO
[2019-08-16] MEDS ORDERED: FUROSEMIDE 40 MG/4 ML VIAL IVP ONE (21:00)
[2019-08-16 21:02] LABS: EOSINOPHILS % (AUTO) 0.4 % (1.0-6.0); HEMATOCRIT 46.4 % (41-53); HEMOGLOBIN 14.7 g/dL (13.5-17.5); LYMPHOCYTES # (AUTO) 0.9 K/uL (1.0-4.8); LYMPHOCYTES % (AUTO) 20.5 % (22.0-44.0); MEAN CORPUSCULAR HEMOGLOBIN 25.3 pg (26.0-34.0); MEAN CORPUSCULAR HGB CONC 31.7 G/dL (31.0-37.0); MEAN CORPUSCULAR VOLUME 80 fL (80-100); MONOCYTES # (AUTO) 0.4 K/uL (0.1-1.0); MONOCYTES % (AUTO) 8.1 % (2.0-9.0); NEUTROPHILS # (AUTO) 3.2 K/uL (1.8-7.7); PLATELET COUNT (AUTO) 149 K/uL (150-450); RED CELL DISTRIBUTION WIDTH 25.9 % (11.5-14.5)
[2019-08-16 21:04] LABS: CREATININE 1.58 mg/dL (0.60-1.30); POTASSIUM 5.9 mmol/L (3.5-5.1)
[2019-08-16 21:10] LABS: ALBUMIN 3.7 g/dL (3.4-5.0); BILIRUBIN,TOTAL 1.6 mg/dL (0.1-1.0)
[2019-08-16] MEDS ORDERED: ONDANSETRON HCL 4 MG/2 ML VIAL IVP PRN (21:15)
[2019-08-16] MEDS ORDERED: ACETAMINOPHEN 325 MG TABLET PO PRN (21:15)
[2019-08-16 21:21] LABS: PLATELET MORPHOLOGY COMMENT LARGE PLTS PRESENT
[2019-08-17 01:20] VITALS: BP 126/83
[2019-08-17] MEDS ORDERED: MAGNESIUM HYDROXIDE SUSPENSION 30 ML UDCUP PO PRN (04:15)
[2019-08-17] MEDS ORDERED: 0.9% SODIUM CHLORIDE 10 ML SYRINGE IVP PRN (04:15)
[2019-08-17] MEDS ORDERED: OxyCODONE HCL/ACETAMINOPHEN 5-325 MG TABLET PO PRN ×2 (04:15)
[2019-08-17] MEDS ORDERED: DEXTROSE 50%-WATER 25 GM/50 ML SYRINGE IVP PRN (04:15)
[2019-08-17] MEDS ORDERED: ACETAMINOPHEN 325 MG TABLET PO PRN (04:15)
[2019-08-17] MEDS ORDERED: ONDANSETRON HCL 4 MG/2 ML VIAL IVP PRN (04:15)
[2019-08-17 05:02] VITALS: BP 126/95
[2019-08-17] MEDS: FUROSEMIDE 40 MG/4 ML VIAL IVP SCH ×2 (08:18→20:30)
[2019-08-17] MEDS: FAMOTIDINE 10 MG/ML 2 ML VIAL IVP SCH (08:18)
[2019-08-17] MEDS: CARVEDILOL 6.25 MG TABLET PO SCH ×2 (08:19→20:26)
[2019-08-17] MEDS: DOCUSATE SODIUM 100 MG CAPSULE PO SCH ×2 (08:19→20:26)
[2019-08-17] MEDS: ASPIRIN 81 MG CHEWABLE TABLET PO SCH (08:19)
[2019-08-17] MEDS: SERTRALINE HCL 50 MG TABLET PO SCH (08:19)
[2019-08-17] MEDS: HEPARIN SODIUM,PORCINE 5,000 UNITS/ML VIAL SQ SCH ×2 (08:19→20:26)
[2019-08-17 08:31] VITALS: BP 125/95
[2019-08-17] MEDS ORDERED: SPIRONOLACTONE 25 MG TABLET PO SCH (09:00)
[2019-08-17] MEDS ORDERED: SODIUM POLYSTYRENE SULFONATE 15 GM/60 ML SUSPENSION BOTTLE PO ONE (12:00)
[2019-08-17] MEDS: INSULIN LISPRO 100 UNITS/ML SQ PRN ×2 (12:09→20:37)
[2019-08-17 12:12] LABS: GLUCOMETER DEV NAME(LOC) 5S.1; GLUCOSE,POINT OF CARE 157 MG/DL (70-110)
[2019-08-17 12:52] VITALS: BP 113/83
[2019-08-17 17:10] LABS: GLUCOMETER DEV NAME(LOC) 5N.1; GLUCOSE,POINT OF CARE 222 MG/DL (70-110)
[2019-08-17 20:16] VITALS: BP 118/91
[2019-08-17 20:23] LABS: GLUCOMETER DEV NAME(LOC) 5S.1; GLUCOSE,POINT OF CARE 106 MG/DL (70-110)
[2019-08-17 20:24] LABS: GLUCOMETER DEV NAME(LOC) 5S.1; GLUCOSE,POINT OF CARE 122 MG/DL (70-110)
[2019-08-17 23:52] VITALS: BP 121/85
[2019-08-18 05:25] VITALS: BP 143/95
[2019-08-18 06:12] LABS: GLUCOMETER DEV NAME(LOC) 5N.3; GLUCOSE,POINT OF CARE 85 MG/DL (70-110)
[2019-08-18 08:12] LABS: BASOPHILS % (AUTO) 0.7 % (0.0-2.0); EOSINOPHILS % (AUTO) 0.4 % (1.0-6.0); HEMATOCRIT 43.8 % (41-53); HEMOGLOBIN 14.4 g/dL (13.5-17.5); LYMPHOCYTES # (AUTO) 0.7 K/uL (1.0-4.8); LYMPHOCYTES % (AUTO) 16.1 % (22.0-44.0); MEAN CORPUSCULAR HEMOGLOBIN 26.4 pg (26.0-34.0); MEAN CORPUSCULAR VOLUME 80 fL (80-100); MONOCYTES # (AUTO) 0.4 K/uL (0.1-1.0); MONOCYTES % (AUTO) 9.9 % (2.0-9.0); NEUTROPHILS # (AUTO) 3.2 K/uL (1.8-7.7); NEUTROPHILS % (AUTO) 72.9 % (40.0-70.0); PLATELET COUNT (AUTO) 135 K/uL (150-450); RED BLOOD CELL COUNT(AUTO) 5.47 MIL/uL (4.50-5.90); RED CELL DISTRIBUTION WIDTH 25.9 % (11.5-14.5)
[2019-08-18 08:14] LABS: ALBUMIN 3.7 g/dL (3.4-5.0); BILIRUBIN,TOTAL 2.1 mg/dL (0.1-1.0); CALCIUM, TOTAL 9.1 mg/dL (8.8-10.5); CREATININE 1.32 mg/dL (0.60-1.30); MAGNESIUM 1.7 mg/dL (1.80-2.40); TOTAL PROTEIN, SERUM 6.7 g/dL (6.4-8.2)
[2019-08-18 08:50] VITALS: BP 132/86
[2019-08-18] MEDS: FUROSEMIDE 40 MG/4 ML VIAL IVP SCH ×2 (09:19→21:07)
[2019-08-18] MEDS: FAMOTIDINE 10 MG/ML 2 ML VIAL IVP SCH (09:21)
[2019-08-18] MEDS: ASPIRIN 81 MG CHEWABLE TABLET PO SCH (09:21)
[2019-08-18] MEDS: HEPARIN SODIUM,PORCINE 5,000 UNITS/ML VIAL SQ SCH ×2 (09:22→21:05)
[2019-08-18] MEDS: CARVEDILOL 6.25 MG TABLET PO SCH ×2 (09:22→21:05)
[2019-08-18] MEDS: SERTRALINE HCL 50 MG TABLET PO SCH (09:22)
[2019-08-18] MEDS: DOCUSATE SODIUM 100 MG CAPSULE PO SCH ×2 (09:22→21:05)
[2019-08-18 09:28] LABS: EOSINOPHILS % (AUTO) 0.3 % (1.0-6.0); HEMATOCRIT 45.3 % (41-53); HEMOGLOBIN 14.8 g/dL (13.5-17.5); LYMPHOCYTES # (AUTO) 0.6 K/uL (1.0-4.8); LYMPHOCYTES % (AUTO) 14.2 % (22.0-44.0); MEAN CORPUSCULAR HGB CONC 32.6 G/dL (31.0-37.0); MEAN CORPUSCULAR VOLUME 80 fL (80-100); MONOCYTES # (AUTO) 0.4 K/uL (0.1-1.0); MONOCYTES % (AUTO) 9.4 % (2.0-9.0); NEUTROPHILS # (AUTO) 3.2 K/uL (1.8-7.7); NEUTROPHILS % (AUTO) 75.1 % (40.0-70.0); PLATELET COUNT (AUTO) 134 K/uL (150-450); RED CELL DISTRIBUTION WIDTH 25.3 % (11.5-14.5)
[2019-08-18 09:39] LABS: CALCIUM, TOTAL 9.2 mg/dL (8.8-10.5); CREATININE 1.4 mg/dL (0.60-1.30); MAGNESIUM 1.8 mg/dL (1.80-2.40); POTASSIUM 3.4 mmol/L (3.5-5.1)
[2019-08-18 11:17] VITALS: BP 124/98
[2019-08-18 12:16] LABS: GLUCOMETER DEV NAME(LOC) AHU.; GLUCOSE,POINT OF CARE 209 MG/DL (70-110)
[2019-08-18] MEDS: INSULIN LISPRO 100 UNITS/ML SQ PRN ×2 (12:59→22:40)
[2019-08-18 16:06] VITALS: BP 119/70
[2019-08-18 17:04] LABS: GLUCOMETER DEV NAME(LOC) 5N.1; GLUCOSE,POINT OF CARE 173 MG/DL (70-110)
[2019-08-18 19:41] VITALS: BP 112/80
[2019-08-18] MEDS ORDERED: FUROSEMIDE 40 MG TABLET PO SCH (21:45)
[2019-08-18] MEDS ORDERED: POTASSIUM CHL 10 MEQ/WATER 50 ML IV PRN (21:45)
[2019-08-18] MEDS: POTASSIUM CHLORIDE 20 MEQ ER TABLET PO PRN (22:34)
[2019-08-19] VITALS (7 sets, daily range): BP systolic 111–141; BP diastolic 78–95
[2019-08-19 00:52] LABS: GLUCOMETER DEV NAME(LOC) 5N.1; GLUCOSE,POINT OF CARE 162 MG/DL (70-110)
[2019-08-19 00:52] LABS: GLUCOMETER DEV NAME(LOC) 5N.1; GLUCOSE,POINT OF CARE 128 MG/DL (70-110)
[2019-08-19 06:45] LABS: GLUCOMETER DEV NAME(LOC) 5N.1; GLUCOSE,POINT OF CARE 78 MG/DL (70-110)
[2019-08-19 07:26] LABS: BASOPHILS % (AUTO) 1.3 % (0.0-2.0); EOSINOPHILS % (AUTO) 0.7 % (1.0-6.0); HEMATOCRIT 44.9 % (41-53); HEMOGLOBIN 15.2 g/dL (13.5-17.5); LYMPHOCYTES % (AUTO) 21.5 % (22.0-44.0); MEAN CORPUSCULAR HGB CONC 33.8 G/dL (31.0-37.0); MEAN CORPUSCULAR VOLUME 80 fL (80-100); MONOCYTES # (AUTO) 0.4 K/uL (0.1-1.0); MONOCYTES % (AUTO) 8.7 % (2.0-9.0); NEUTROPHILS % (AUTO) 67.8 % (40.0-70.0); PLATELET COUNT (AUTO) 143 K/uL (150-450); RED BLOOD CELL COUNT(AUTO) 5.62 MIL/uL (4.50-5.90); RED CELL DISTRIBUTION WIDTH 25.6 % (11.5-14.5)
[2019-08-19 07:55] LABS: CALCIUM, TOTAL 9.1 mg/dL (8.8-10.5); CREATININE 1.51 mg/dL (0.60-1.30); POTASSIUM 3.6 mmol/L (3.5-5.1)
[2019-08-19] MEDS: FAMOTIDINE 10 MG/ML 2 ML VIAL IVP SCH (08:08)
[2019-08-19] MEDS: SERTRALINE HCL 50 MG TABLET PO SCH (08:09)
[2019-08-19] MEDS: ASPIRIN 81 MG CHEWABLE TABLET PO SCH (08:09)
[2019-08-19] MEDS: DOCUSATE SODIUM 100 MG CAPSULE PO SCH ×2 (08:09→21:26)
[2019-08-19] MEDS: FUROSEMIDE 40 MG TABLET PO SCH ×2 (08:09→21:26)
[2019-08-19] MEDS: CARVEDILOL 6.25 MG TABLET PO SCH ×2 (08:09→21:26)
[2019-08-19] MEDS: HEPARIN SODIUM,PORCINE 5,000 UNITS/ML VIAL SQ SCH ×2 (08:14→21:32)
[2019-08-19] MEDS: SPIRONOLACTONE 25 MG TABLET PO SCH (15:09)
[2019-08-19] MEDS: INSULIN LISPRO 100 UNITS/ML SQ PRN ×2 (17:25→21:37)
[2019-08-20 01:43] LABS: GLUCOMETER DEV NAME(LOC) 5S.1; GLUCOSE,POINT OF CARE 191 MG/DL (70-110)
[2019-08-20 04:04] LABS: GLUCOMETER DEV NAME(LOC) 5N.1; GLUCOSE,POINT OF CARE 212 MG/DL (70-110)
[2019-08-20 04:33] VITALS: BP 108/77
[2019-08-20 06:44] LABS: GLUCOMETER DEV NAME(LOC) 5S.1; GLUCOSE,POINT OF CARE 88 MG/DL (70-110)
[2019-08-20] MEDS: ASPIRIN 81 MG CHEWABLE TABLET PO SCH (08:06)
[2019-08-20] MEDS: FAMOTIDINE 10 MG/ML 2 ML VIAL IVP SCH (08:06)
[2019-08-20] MEDS: HEPARIN SODIUM,PORCINE 5,000 UNITS/ML VIAL SQ SCH ×2 (08:06→21:07)
[2019-08-20] MEDS: DOCUSATE SODIUM 100 MG CAPSULE PO SCH ×2 (08:06→21:06)
[2019-08-20] MEDS: SERTRALINE HCL 50 MG TABLET PO SCH (08:07)
[2019-08-20] MEDS: CARVEDILOL 6.25 MG TABLET PO SCH ×2 (08:07→21:06)
[2019-08-20] MEDS: FUROSEMIDE 40 MG TABLET PO SCH ×2 (08:07→21:06)
[2019-08-20] MEDS: SPIRONOLACTONE 25 MG TABLET PO SCH (08:07)
[2019-08-20 08:16] LABS: BASOPHILS % (AUTO) 0.8 % (0.0-2.0); HEMATOCRIT 46.4 % (41-53); HEMOGLOBIN 15.2 g/dL (13.5-17.5); LYMPHOCYTES # (AUTO) 1.1 K/uL (1.0-4.8); LYMPHOCYTES % (AUTO) 24.7 % (22.0-44.0); MEAN CORPUSCULAR HEMOGLOBIN 26.1 pg (26.0-34.0); MEAN CORPUSCULAR HGB CONC 32.6 G/dL (31.0-37.0); MEAN CORPUSCULAR VOLUME 80 fL (80-100); MONOCYTES # (AUTO) 0.4 K/uL (0.1-1.0); MONOCYTES % (AUTO) 9.2 % (2.0-9.0); NEUTROPHILS # (AUTO) 2.9 K/uL (1.8-7.7); NEUTROPHILS % (AUTO) 64.3 % (40.0-70.0); PLATELET COUNT (AUTO) 142 K/uL (150-450); RED BLOOD CELL COUNT(AUTO) 5.81 MIL/uL (4.50-5.90); RED CELL DISTRIBUTION WIDTH 25.6 % (11.5-14.5)
[2019-08-20 09:27] VITALS: BP 127/75
[2019-08-20] MEDS: INSULIN LISPRO 100 UNITS/ML SQ PRN ×2 (12:09→21:12)
[2019-08-20 15:27] LABS: GLUCOMETER DEV NAME(LOC) 5S.1; GLUCOSE,POINT OF CARE 184 MG/DL (70-110)
[2019-08-20 16:00] VITALS: BP 118/80
[2019-08-20] MEDS ORDERED: FUROSEMIDE 40 MG/4 ML VIAL IVP ONE (16:00)
[2019-08-20 20:23] VITALS: BP 108/74
[2019-08-21 00:54] VITALS: BP 121/85
[2019-08-21 03:45] VITALS: BP 110/83
[2019-08-21 07:14] LABS: GLUCOMETER DEV NAME(LOC) 5N.1; GLUCOSE,POINT OF CARE 178 MG/DL (70-110)
[2019-08-21 07:14] LABS: GLUCOMETER DEV NAME(LOC) 5N.1; GLUCOSE,POINT OF CARE 104 MG/DL (70-110)
[2019-08-21 07:15] LABS: GLUCOMETER DEV NAME(LOC) 5S.1; GLUCOSE,POINT OF CARE 95 MG/DL (70-110)
[2019-08-21 07:37] VITALS: BP 113/89
[2019-08-21] MEDS: HEPARIN SODIUM,PORCINE 5,000 UNITS/ML VIAL SQ SCH ×2 (08:35→21:22)
[2019-08-21] MEDS: SPIRONOLACTONE 25 MG TABLET PO SCH (08:35)
[2019-08-21] MEDS: DOCUSATE SODIUM 100 MG CAPSULE PO SCH ×2 (08:35→21:21)
[2019-08-21] MEDS: CARVEDILOL 6.25 MG TABLET PO SCH ×2 (08:35→21:21)
[2019-08-21] MEDS: FUROSEMIDE 40 MG TABLET PO SCH (08:35)
[2019-08-21] MEDS: ASPIRIN 81 MG CHEWABLE TABLET PO SCH (08:40)
[2019-08-21] MEDS: FAMOTIDINE 10 MG/ML 2 ML VIAL IVP SCH (10:20)
[2019-08-21] MEDS: SERTRALINE HCL 50 MG TABLET PO SCH (10:20)
[2019-08-21 11:17] LABS: BASOPHILS % (AUTO) 1.5 % (0.0-2.0); EOSINOPHILS % (AUTO) 1.1 % (1.0-6.0); HEMATOCRIT 44.7 % (41-53); HEMOGLOBIN 14.5 g/dL (13.5-17.5); LYMPHOCYTES # (AUTO) 0.7 K/uL (1.0-4.8); LYMPHOCYTES % (AUTO) 18.9 % (22.0-44.0); MEAN CORPUSCULAR HEMOGLOBIN 25.9 pg (26.0-34.0); MEAN CORPUSCULAR HGB CONC 32.5 G/dL (31.0-37.0); MEAN CORPUSCULAR VOLUME 80 fL (80-100); MONOCYTES # (AUTO) 0.5 K/uL (0.1-1.0); MONOCYTES % (AUTO) 12.8 % (2.0-9.0); NEUTROPHILS # (AUTO) 2.5 K/uL (1.8-7.7); NEUTROPHILS % (AUTO) 65.7 % (40.0-70.0); PLATELET COUNT (AUTO) 130 K/uL (150-450); RED CELL DISTRIBUTION WIDTH 25.6 % (11.5-14.5)
[2019-08-21] MEDS: INSULIN LISPRO 100 UNITS/ML SQ PRN ×2 (11:45→21:22)
[2019-08-21 11:56] VITALS: BP 110/65
[2019-08-21 11:59] LABS: ALBUMIN 3.5 g/dL (3.4-5.0); BILIRUBIN,TOTAL 1.7 mg/dL (0.1-1.0); CALCIUM, TOTAL 8.9 mg/dL (8.8-10.5); CREATININE 1.62 mg/dL (0.60-1.30); POTASSIUM 3.9 mmol/L (3.5-5.1); TOTAL PROTEIN, SERUM 6.5 g/dL (6.4-8.2)
[2019-08-21 13:16] LABS: GLUCOMETER DEV NAME(LOC) 5S.1; GLUCOSE,POINT OF CARE 170 MG/DL (70-110)
[2019-08-21 15:56] VITALS: BP 114/81
[2019-08-21 17:18] LABS: GLUCOMETER DEV NAME(LOC) 5S.1; GLUCOSE,POINT OF CARE 106 MG/DL (70-110)
[2019-08-21 21:00] VITALS: BP 136/75
[2019-08-21] MEDS: FUROSEMIDE 80 MG TABLET PO SCH (21:22)
[2019-08-21 21:55] LABS: GLUCOMETER DEV NAME(LOC) 5N.1; GLUCOSE,POINT OF CARE 140 MG/DL (70-110)
[2019-08-22] VITALS: BP 133/74
[2019-08-22 05:00] VITALS: BP 107/82
[2019-08-22] MEDS: INSULIN LISPRO 100 UNITS/ML SQ PRN (05:56)
[2019-08-22 06:50] LABS: GLUCOMETER DEV NAME(LOC) 5N.1; GLUCOSE,POINT OF CARE 162 MG/DL (70-110)
[2019-08-22 07:01] LABS: BASOPHILS % (AUTO) 0.9 % (0.0-2.0); EOSINOPHILS % (AUTO) 0.3 % (1.0-6.0); HEMATOCRIT 41.6 % (41-53); HEMOGLOBIN 13.4 g/dL (13.5-17.5); LYMPHOCYTES # (AUTO) 0.6 K/uL (1.0-4.8); LYMPHOCYTES % (AUTO) 20.2 % (22.0-44.0); MEAN CORPUSCULAR HEMOGLOBIN 25.8 pg (26.0-34.0); MEAN CORPUSCULAR HGB CONC 32.1 G/dL (31.0-37.0); MEAN CORPUSCULAR VOLUME 80 fL (80-100); MONOCYTES # (AUTO) 0.4 K/uL (0.1-1.0); MONOCYTES % (AUTO) 13.5 % (2.0-9.0); NEUTROPHILS # (AUTO) 2.1 K/uL (1.8-7.7); NEUTROPHILS % (AUTO) 65.1 % (40.0-70.0); PLATELET COUNT (AUTO) 123 K/uL (150-450); RED BLOOD CELL COUNT(AUTO) 5.19 MIL/uL (4.50-5.90); RED CELL DISTRIBUTION WIDTH 25.2 % (11.5-14.5)
[2019-08-22 07:17] VITALS: BP 125/86
[2019-08-22 07:25] LABS: ALBUMIN 3.3 g/dL (3.4-5.0); BILIRUBIN,TOTAL 1.7 mg/dL (0.1-1.0); CALCIUM, TOTAL 8.6 mg/dL (8.8-10.5); CREATININE 1.38 mg/dL (0.60-1.30); POTASSIUM 3.5 mmol/L (3.5-5.1); TOTAL PROTEIN, SERUM 6.5 g/dL (6.4-8.2)
[2019-08-22] MEDS: SPIRONOLACTONE 25 MG TABLET PO SCH (08:59)
[2019-08-22] MEDS: FAMOTIDINE 10 MG/ML 2 ML VIAL IVP SCH (08:59)
[2019-08-22] MEDS: CARVEDILOL 6.25 MG TABLET PO SCH ×2 (09:00→20:32)
[2019-08-22] MEDS: ASPIRIN 81 MG CHEWABLE TABLET PO SCH (09:00)
[2019-08-22] MEDS: SERTRALINE HCL 50 MG TABLET PO SCH (09:00)
[2019-08-22] MEDS: FUROSEMIDE 80 MG TABLET PO SCH ×2 (09:00→20:32)
[2019-08-22] MEDS: HEPARIN SODIUM,PORCINE 5,000 UNITS/ML VIAL SQ SCH ×2 (09:00→20:32)
[2019-08-22] MEDS: DOCUSATE SODIUM 100 MG CAPSULE PO SCH ×2 (09:00→20:32)
[2019-08-22 10:49] VITALS: BP 101/77
[2019-08-22 15:26] VITALS: BP 110/82
[2019-08-22] MEDS: METOLAZONE 2.5 MG TABLET PO SCH (18:33)
[2019-08-22 20:40] VITALS: BP 119/67
[2019-08-23 00:33] LABS: GLUCOMETER DEV NAME(LOC) 5S.1; GLUCOSE,POINT OF CARE 115 MG/DL (70-110)
[2019-08-23 00:33] LABS: GLUCOMETER DEV NAME(LOC) 5S.1; GLUCOSE,POINT OF CARE 99 MG/DL (70-110)
[2019-08-23 00:50] VITALS: BP 110/78
[2019-08-23 04:14] VITALS: BP 114/70
[2019-08-23 05:58] LABS: GLUCOMETER DEV NAME(LOC) 5N.1; GLUCOSE,POINT OF CARE 112 MG/DL (70-110)
[2019-08-23 07:12] LABS: EOSINOPHILS % (AUTO) 0.6 % (1.0-6.0); HEMATOCRIT 46.7 % (41-53); HEMOGLOBIN 15.1 g/dL (13.5-17.5); LYMPHOCYTES # (AUTO) 0.9 K/uL (1.0-4.8); LYMPHOCYTES % (AUTO) 23.7 % (22.0-44.0); MEAN CORPUSCULAR HGB CONC 32.4 G/dL (31.0-37.0); MEAN CORPUSCULAR VOLUME 80 fL (80-100); MONOCYTES # (AUTO) 0.4 K/uL (0.1-1.0); MONOCYTES % (AUTO) 9.7 % (2.0-9.0); NEUTROPHILS # (AUTO) 2.6 K/uL (1.8-7.7); PLATELET COUNT (AUTO) 127 K/uL (150-450); RED BLOOD CELL COUNT(AUTO) 5.81 MIL/uL (4.50-5.90); RED CELL DISTRIBUTION WIDTH 25.6 % (11.5-14.5)
[2019-08-23 07:32] LABS: GLUCOMETER DEV NAME(LOC) 5S.1; GLUCOSE,POINT OF CARE 152 MG/DL (70-110)
[2019-08-23 07:36] LABS: ALBUMIN 3.8 g/dL (3.4-5.0); BILIRUBIN,TOTAL 2.3 mg/dL (0.1-1.0); CALCIUM, TOTAL 9.3 mg/dL (8.8-10.5); CREATININE 1.62 mg/dL (0.60-1.30); POTASSIUM 4.1 mmol/L (3.5-5.1); TOTAL PROTEIN, SERUM 6.9 g/dL (6.4-8.2)
[2019-08-23 08:39] VITALS: BP 125/88
[2019-08-23] MEDS: DOCUSATE SODIUM 100 MG CAPSULE PO SCH ×2 (08:46→20:23)
[2019-08-23] MEDS: FUROSEMIDE 80 MG TABLET PO SCH ×2 (08:47→20:22)
[2019-08-23] MEDS: SERTRALINE HCL 50 MG TABLET PO SCH (08:47)
[2019-08-23] MEDS: ASPIRIN 81 MG CHEWABLE TABLET PO SCH (08:47)
[2019-08-23] MEDS: CARVEDILOL 6.25 MG TABLET PO SCH ×2 (08:47→20:22)
[2019-08-23] MEDS: SPIRONOLACTONE 25 MG TABLET PO SCH (08:47)
[2019-08-23] MEDS: METOLAZONE 2.5 MG TABLET PO SCH (08:47)
[2019-08-23] MEDS: HEPARIN SODIUM,PORCINE 5,000 UNITS/ML VIAL SQ SCH ×2 (08:47→20:21)
[2019-08-23] MEDS: FAMOTIDINE 10 MG/ML 2 ML VIAL IVP SCH (08:48)
[2019-08-23] MEDS: INSULIN LISPRO 100 UNITS/ML SQ PRN ×3 (12:23→20:52)
[2019-08-23 12:26] VITALS: BP 101/73
[2019-08-23 17:06] VITALS: BP 112/72
[2019-08-23 18:46] LABS: GLUCOMETER DEV NAME(LOC) 5S.1; GLUCOSE,POINT OF CARE 162 MG/DL (70-110)
[2019-08-23 18:47] LABS: GLUCOMETER DEV NAME(LOC) 5N.1; GLUCOSE,POINT OF CARE 188 MG/DL (70-110)
[2019-08-23 20:18] VITALS: BP 106/76
[2019-08-23 23:44] LABS: GLUCOMETER DEV NAME(LOC) 5N.1; GLUCOSE,POINT OF CARE 172 MG/DL (70-110)
[2019-08-24] VITALS (7 sets, daily range): BP systolic 104–131; BP diastolic 67–107
[2019-08-24 07:10] LABS: BASOPHILS % (AUTO) 0.7 % (0.0-2.0); EOSINOPHILS % (AUTO) 0.8 % (1.0-6.0); HEMATOCRIT 46.1 % (41-53); LYMPHOCYTES % (AUTO) 25.1 % (22.0-44.0); MEAN CORPUSCULAR HEMOGLOBIN 26.1 pg (26.0-34.0); MEAN CORPUSCULAR HGB CONC 32.5 G/dL (31.0-37.0); MEAN CORPUSCULAR VOLUME 80 fL (80-100); MONOCYTES # (AUTO) 0.4 K/uL (0.1-1.0); NEUTROPHILS # (AUTO) 2.6 K/uL (1.8-7.7); NEUTROPHILS % (AUTO) 63.4 % (40.0-70.0); PLATELET COUNT (AUTO) 132 K/uL (150-450); RED BLOOD CELL COUNT(AUTO) 5.75 MIL/uL (4.50-5.90); RED CELL DISTRIBUTION WIDTH 25.4 % (11.5-14.5)
[2019-08-24 07:26] LABS: ALBUMIN 3.8 g/dL (3.4-5.0); BILIRUBIN,TOTAL 2.2 mg/dL (0.1-1.0); CALCIUM, TOTAL 9.4 mg/dL (8.8-10.5); CREATININE 1.55 mg/dL (0.60-1.30); POTASSIUM 3.8 mmol/L (3.5-5.1); TOTAL PROTEIN, SERUM 7.1 g/dL (6.4-8.2)
[2019-08-24] MEDS: HEPARIN SODIUM,PORCINE 5,000 UNITS/ML VIAL SQ SCH ×2 (08:18→21:16)
[2019-08-24] MEDS: FUROSEMIDE 80 MG TABLET PO SCH ×2 (08:18→21:16)
[2019-08-24] MEDS: METOLAZONE 2.5 MG TABLET PO SCH (08:18)
[2019-08-24] MEDS: FAMOTIDINE 10 MG/ML 2 ML VIAL IVP SCH (08:18)
[2019-08-24] MEDS: CARVEDILOL 6.25 MG TABLET PO SCH ×2 (08:18→21:16)
[2019-08-24] MEDS: SPIRONOLACTONE 25 MG TABLET PO SCH (08:18)
[2019-08-24] MEDS: ASPIRIN 81 MG CHEWABLE TABLET PO SCH (08:18)
[2019-08-24] MEDS: SERTRALINE HCL 50 MG TABLET PO SCH (08:18)
[2019-08-24] MEDS: DOCUSATE SODIUM 100 MG CAPSULE PO SCH ×2 (08:18→21:00)
[2019-08-24] MEDS: INSULIN LISPRO 100 UNITS/ML SQ PRN ×2 (12:36→21:15)
[2019-08-24 21:20] LABS: GLUCOMETER DEV NAME(LOC) 5S.1; GLUCOSE,POINT OF CARE 103 MG/DL (70-110)
[2019-08-24 23:21] LABS: GLUCOMETER DEV NAME(LOC) 5N.1; GLUCOSE,POINT OF CARE 131 MG/DL (70-110)
[2019-08-24 23:21] LABS: GLUCOMETER DEV NAME(LOC) 5N.1; GLUCOSE,POINT OF CARE 157 MG/DL (70-110)
[2019-08-25 03:44] VITALS: BP 132/85
[2019-08-25 07:07] LABS: BASOPHILS % (AUTO) 0.7 % (0.0-2.0); EOSINOPHILS % (AUTO) 0.7 % (1.0-6.0); HEMOGLOBIN 14.7 g/dL (13.5-17.5); LYMPHOCYTES # (AUTO) 0.9 K/uL (1.0-4.8); LYMPHOCYTES % (AUTO) 22.1 % (22.0-44.0); MEAN CORPUSCULAR HEMOGLOBIN 26.2 pg (26.0-34.0); MEAN CORPUSCULAR HGB CONC 32.7 G/dL (31.0-37.0); MEAN CORPUSCULAR VOLUME 80 fL (80-100); MONOCYTES # (AUTO) 0.5 K/uL (0.1-1.0); MONOCYTES % (AUTO) 11.7 % (2.0-9.0); NEUTROPHILS # (AUTO) 2.6 K/uL (1.8-7.7); NEUTROPHILS % (AUTO) 64.8 % (40.0-70.0); PLATELET COUNT (AUTO) 124 K/uL (150-450); RED BLOOD CELL COUNT(AUTO) 5.61 MIL/uL (4.50-5.90); RED CELL DISTRIBUTION WIDTH 24.8 % (11.5-14.5)
[2019-08-25 07:14] LABS: BILIRUBIN,TOTAL 2.4 mg/dL (0.1-1.0); CALCIUM, TOTAL 9.6 mg/dL (8.8-10.5); CREATININE 1.5 mg/dL (0.60-1.30); POTASSIUM 3.6 mmol/L (3.5-5.1); TOTAL PROTEIN, SERUM 7.3 g/dL (6.4-8.2)
[2019-08-25 07:28] LABS: GLUCOMETER DEV NAME(LOC) 5S.1; GLUCOSE,POINT OF CARE 100 MG/DL (70-110)
[2019-08-25 07:35] VITALS: BP 116/88
[2019-08-25] MEDS: ASPIRIN 81 MG CHEWABLE TABLET PO SCH (09:05)
[2019-08-25] MEDS: CARVEDILOL 6.25 MG TABLET PO SCH ×2 (09:05→21:30)
[2019-08-25] MEDS: SPIRONOLACTONE 25 MG TABLET PO SCH (09:05)
[2019-08-25] MEDS: FUROSEMIDE 80 MG TABLET PO SCH ×2 (09:05→21:30)
[2019-08-25] MEDS: FAMOTIDINE 10 MG/ML 2 ML VIAL IVP SCH (09:05)
[2019-08-25] MEDS: DOCUSATE SODIUM 100 MG CAPSULE PO SCH ×2 (09:05→21:30)
[2019-08-25] MEDS: METOLAZONE 2.5 MG TABLET PO SCH (09:05)
[2019-08-25] MEDS: SERTRALINE HCL 50 MG TABLET PO SCH (09:05)
[2019-08-25] MEDS: HEPARIN SODIUM,PORCINE 5,000 UNITS/ML VIAL SQ SCH ×2 (09:06→21:31)
[2019-08-25 11:31] VITALS: BP 110/81
[2019-08-25] MEDS: INSULIN LISPRO 100 UNITS/ML SQ PRN ×2 (12:12→21:32)
[2019-08-25 16:07] VITALS: BP 117/76
[2019-08-25 17:58] LABS: GLUCOMETER DEV NAME(LOC) 5N.1; GLUCOSE,POINT OF CARE 122 MG/DL (70-110)
[2019-08-25 17:58] LABS: GLUCOMETER DEV NAME(LOC) 5N.1; GLUCOSE,POINT OF CARE 153 MG/DL (70-110)
[2019-08-25 19:35] VITALS: BP 129/84
[2019-08-25 23:27] VITALS: BP 115/79
[2019-08-26 00:08] LABS: GLUCOMETER DEV NAME(LOC) 5N.1; GLUCOSE,POINT OF CARE 174 MG/DL (70-110)
[2019-08-26 04:27] VITALS: BP 112/85
[2019-08-26 07:05] LABS: GLUCOMETER DEV NAME(LOC) 5N.1; GLUCOSE,POINT OF CARE 93 MG/DL (70-110)
[2019-08-26 07:40] LABS: BASOPHILS % (AUTO) 0.6 % (0.0-2.0); EOSINOPHILS % (AUTO) 0.7 % (1.0-6.0); HEMATOCRIT 45.2 % (41-53); HEMOGLOBIN 14.5 g/dL (13.5-17.5); LYMPHOCYTES # (AUTO) 0.8 K/uL (1.0-4.8); LYMPHOCYTES % (AUTO) 21.9 % (22.0-44.0); MEAN CORPUSCULAR HEMOGLOBIN 25.4 pg (26.0-34.0); MEAN CORPUSCULAR HGB CONC 32.1 G/dL (31.0-37.0); MEAN CORPUSCULAR VOLUME 79 fL (80-100); MONOCYTES # (AUTO) 0.5 K/uL (0.1-1.0); MONOCYTES % (AUTO) 13.8 % (2.0-9.0); NEUTROPHILS # (AUTO) 2.2 K/uL (1.8-7.7); PLATELET COUNT (AUTO) 128 K/uL (150-450); RED CELL DISTRIBUTION WIDTH 24.3 % (11.5-14.5)
[2019-08-26 07:55] LABS: ALBUMIN 3.7 g/dL (3.4-5.0); BILIRUBIN,TOTAL 2.1 mg/dL (0.1-1.0); CALCIUM, TOTAL 9.1 mg/dL (8.8-10.5); CREATININE 1.4 mg/dL (0.60-1.30); POTASSIUM 3.2 mmol/L (3.5-5.1); TOTAL PROTEIN, SERUM 6.8 g/dL (6.4-8.2)
[2019-08-26 08:02] VITALS: BP 119/84
[2019-08-26] MEDS: FAMOTIDINE 10 MG/ML 2 ML VIAL IVP SCH (08:24)
[2019-08-26] MEDS: ASPIRIN 81 MG CHEWABLE TABLET PO SCH (08:24)
[2019-08-26] MEDS: METOLAZONE 2.5 MG TABLET PO SCH (08:24)
[2019-08-26] MEDS: CARVEDILOL 6.25 MG TABLET PO SCH ×2 (08:24→23:13)
[2019-08-26] MEDS: FUROSEMIDE 80 MG TABLET PO SCH ×2 (08:24→21:37)
[2019-08-26] MEDS: DOCUSATE SODIUM 100 MG CAPSULE PO SCH ×2 (08:24→21:37)
[2019-08-26] MEDS: SERTRALINE HCL 50 MG TABLET PO SCH (08:24)
[2019-08-26] MEDS: HEPARIN SODIUM,PORCINE 5,000 UNITS/ML VIAL SQ SCH ×2 (08:25→21:37)
[2019-08-26] MEDS: SPIRONOLACTONE 25 MG TABLET PO SCH (08:25)
[2019-08-26] MEDS: POTASSIUM CHLORIDE 20 MEQ ER TABLET PO PRN (10:28)
[2019-08-26 11:00] VITALS: BP 117/86
[2019-08-26] MEDS: INSULIN LISPRO 100 UNITS/ML SQ PRN ×2 (12:24→17:51)
[2019-08-26 15:50] VITALS: BP 95/71
[2019-08-26 20:31] VITALS: BP 102/76
[2019-08-26 23:35] LABS: GLUCOMETER DEV NAME(LOC) 5S.1; GLUCOSE,POINT OF CARE 115 MG/DL (70-110)
[2019-08-26 23:35] LABS: GLUCOMETER DEV NAME(LOC) 5N.1; GLUCOSE,POINT OF CARE 169 MG/DL (70-110)
[2019-08-26 23:35] LABS: GLUCOMETER DEV NAME(LOC) 5N.1; GLUCOSE,POINT OF CARE 148 MG/DL (70-110)
[2019-08-26 23:55] VITALS: BP 109/80
[2019-08-27 05:29] VITALS: BP 118/88
[2019-08-27] MEDS: INSULIN LISPRO 100 UNITS/ML SQ PRN ×4 (05:58→21:01)
[2019-08-27 07:16] LABS: BASOPHILS % (AUTO) 0.7 % (0.0-2.0); EOSINOPHILS % (AUTO) 0.6 % (1.0-6.0); HEMATOCRIT 45.3 % (41-53); HEMOGLOBIN 14.8 g/dL (13.5-17.5); LYMPHOCYTES # (AUTO) 0.9 K/uL (1.0-4.8); LYMPHOCYTES % (AUTO) 25.5 % (22.0-44.0); MEAN CORPUSCULAR HEMOGLOBIN 26.1 pg (26.0-34.0); MEAN CORPUSCULAR HGB CONC 32.7 G/dL (31.0-37.0); MEAN CORPUSCULAR VOLUME 80 fL (80-100); MONOCYTES # (AUTO) 0.4 K/uL (0.1-1.0); NEUTROPHILS # (AUTO) 2.2 K/uL (1.8-7.7); NEUTROPHILS % (AUTO) 62.2 % (40.0-70.0); PLATELET COUNT (AUTO) 108 K/uL (150-450); RED BLOOD CELL COUNT(AUTO) 5.68 MIL/uL (4.50-5.90); RED CELL DISTRIBUTION WIDTH 24.2 % (11.5-14.5)
[2019-08-27 07:43] VITALS: BP 118/72
[2019-08-27 07:51] LABS: ALBUMIN 3.8 g/dL (3.4-5.0); BILIRUBIN,TOTAL 2.3 mg/dL (0.1-1.0); CALCIUM, TOTAL 9.3 mg/dL (8.8-10.5); CREATININE 1.48 mg/dL (0.60-1.30); POTASSIUM 3.9 mmol/L (3.5-5.1); TOTAL PROTEIN, SERUM 7.1 g/dL (6.4-8.2)
[2019-08-27] MEDS: FUROSEMIDE 80 MG TABLET PO SCH ×2 (08:48→20:59)
[2019-08-27] MEDS: SERTRALINE HCL 50 MG TABLET PO SCH (08:48)
[2019-08-27] MEDS: FAMOTIDINE 10 MG/ML 2 ML VIAL IVP SCH (08:49)
[2019-08-27] MEDS: CARVEDILOL 6.25 MG TABLET PO SCH ×2 (08:52→20:59)
[2019-08-27] MEDS: ASPIRIN 81 MG CHEWABLE TABLET PO SCH (08:53)
[2019-08-27] MEDS: DOCUSATE SODIUM 100 MG CAPSULE PO SCH ×2 (08:53→20:59)
[2019-08-27] MEDS: HEPARIN SODIUM,PORCINE 5,000 UNITS/ML VIAL SQ SCH ×2 (09:00→20:59)
[2019-08-27 11:49] LABS: GLUCOMETER DEV NAME(LOC) 5N.1; GLUCOSE,POINT OF CARE 133 MG/DL (70-110)
[2019-08-27 12:10] VITALS: BP 95/72
[2019-08-27 16:29] VITALS: BP 96/52
[2019-08-27] MEDS: METOLAZONE 2.5 MG TABLET PO SCH (17:40)
[2019-08-27] MEDS: SPIRONOLACTONE 25 MG TABLET PO SCH (17:40)
[2019-08-27 17:56] LABS: GLUCOMETER DEV NAME(LOC) 5N.1; GLUCOSE,POINT OF CARE 147 MG/DL (70-110)
[2019-08-27 18:16] LABS: GLUCOMETER DEV NAME(LOC) 5S.1; GLUCOSE,POINT OF CARE 178 MG/DL (70-110)
[2019-08-27 19:49] VITALS: BP 101/64
[2019-08-28] VITALS: BP 115/77
[2019-08-28 04:00] VITALS: BP 110/74
[2019-08-28 06:43] LABS: GLUCOMETER DEV NAME(LOC) 5N.1; GLUCOSE,POINT OF CARE 180 MG/DL (70-110)
[2019-08-28] MEDS: INSULIN LISPRO 100 UNITS/ML SQ PRN ×2 (07:01→12:29)
[2019-08-28 08:00] VITALS: BP 124/87
[2019-08-28] MEDS: HEPARIN SODIUM,PORCINE 5,000 UNITS/ML VIAL SQ SCH (08:01)
[2019-08-28] MEDS: DOCUSATE SODIUM 100 MG CAPSULE PO SCH (08:01)
[2019-08-28] MEDS: FUROSEMIDE 80 MG TABLET PO SCH (08:01)
[2019-08-28] MEDS: CARVEDILOL 6.25 MG TABLET PO SCH (08:02)
[2019-08-28] MEDS: METOLAZONE 2.5 MG TABLET PO SCH (08:02)
[2019-08-28] MEDS: SERTRALINE HCL 50 MG TABLET PO SCH (08:02)
[2019-08-28] MEDS: ASPIRIN 81 MG CHEWABLE TABLET PO SCH (08:02)
[2019-08-28] MEDS: SPIRONOLACTONE 25 MG TABLET PO SCH (08:02)
[2019-08-28] MEDS: FAMOTIDINE 10 MG/ML 2 ML VIAL IVP SCH (08:02)
[2019-08-28 12:27] LABS: GLUCOMETER DEV NAME(LOC) 5S.1; GLUCOSE,POINT OF CARE 131 MG/DL (70-110)
[2019-08-28 12:29] LABS: GLUCOMETER DEV NAME(LOC) 5S.1; GLUCOSE,POINT OF CARE 191 MG/DL (70-110)
[2019-08-28 12:44] VITALS: BP 112/70
[2019-08-28] MEDS ORDERED: SPIR25 PO (13:29)
[2019-08-28] MEDS ORDERED: METO2.5T4 PO (13:30)
[2019-08-28 15:44] VITALS: BP 101/74
== END 2019-08-28 16:40 | disposition home health service (06) | DRG 291 ==
LOC: EMS 19:30 → 5S 21:08
PROVIDERS: ADMIT Internal Medicine; ATTEND Internal Medicine
PROC: 4B02XTZ Measurement of Cardiac Defibrillator, External Approach (ICD-10-PCS; principal; 2019-08-18)
DX: I13.0 Hypertensive heart and chronic kidney disease with heart failure and stage 1 through stage 4 chronic kidney disease, or unspecified chronic kidney disease (principal); I50.43 Acute on chronic combined systolic (congestive) and diastolic (congestive) heart failure; N17.9 Acute kidney failure, unspecified; I42.8 Other cardiomyopathies; E87.5 Hyperkalemia; J44.9 Chronic obstructive pulmonary disease, unspecified; K21.9 Gastro-esophageal reflux disease without esophagitis; G62.9 Polyneuropathy, unspecified; E78.5 Hyperlipidemia, unspecified; E11.22 Type 2 diabetes mellitus with diabetic chronic kidney disease; R60.1 Generalized edema; E11.65 Type 2 diabetes mellitus with hyperglycemia; N18.3 Chronic kidney disease, stage 3 (moderate); Z95.810 Presence of automatic (implantable) cardiac defibrillator; Z79.899 Other long term (current) drug therapy
CPT/HCPCS: 83735; 84132; 93005; J1644; J1940; J2405; J3490